=== PATIENT | female | born 1995 | race Two or more races ===

== ENCOUNTER 2018-06-28 15:39 | Inpatient (IN) | payer SELFPAY ==
[~2018-06-28] VITALS: Ht 162.6 cm; Wt 73.6 kg
[2018-06-28 16:35] LABS: Albumin 4.6 g/dL (3.4-5.0); Calcium 9.8 mg/dL (8.5-10.1)
[2018-06-28 16:38] LABS: Bilirubin, Total 0.6 mg/dL (0.2-1.0)
[2018-06-28 16:40] LABS: Basophils # (auto) 0 uL; Basophils % (auto) 0.1 % (0.0-2.0); Eosinophils # (auto) 0 uL; Hematocrit 43.4 % (36.0-46.0); Hemoglobin 14.5 g/dL (12.2-16.2); Lymphocytes % (auto) 8.1 % (10.0-50.0); Mean Corpuscular Hemoglobin 27.2 pg (28.0-32.0); Mean Corpuscular Hgb Conc. 33.4 g/dL (32.0-36.0); Mean Corpuscular Volume 81.4 fL (80.0-100.0); Monocytes # (auto) 0.6 uL; Monocytes % (auto) 4.8 % (0.0-12.0); Neutrophils # (auto) 10.3 uL; Platelet Count (auto) 396 10^3/uL (140-450); Red Blood Cells 5.33 10^6/uL (4.0-5.20); Red Cell Distribution Width 14.2 % (11.8-14.3); White Blood Cell 11.8 10^3/uL (4.4-10.8)
[2018-06-28] MEDS ORDERED: IOHEXOL 350 MG/ML 100ML IJ ONE ×2 (18:07→18:45)
[2018-06-28 18:13] LABS: Urine WBC None Seen /hpf (0 - 5)
[2018-06-28] MEDS ORDERED: ONDANSETRON HCL 4 MG/2 ML VIAL IV ONE (18:15)
[2018-06-28] MEDS ORDERED: MORPHINE SULFATE 4 MG/ML SYR/VIAL IV ONE (18:15)
[2018-06-28] MEDS ORDERED: SODIUM CHLORIDE 0.9% 1,000 ML IV ONE (18:15)
[2018-06-28] MEDS ORDERED: ACETAMINOPHEN 325 MG TAB PO ONE (18:15)
[2018-06-28 18:45] LABS: Urine Bacteria NONE SEEN /hpf (None Seen); Urine Blood 2+ /uL (Negative); Urine Specific Gravity 1.004 (1.001-1.035)
[2018-06-28] MEDS ORDERED: POTASSIUM CHL 20MEQ/100ML 100 ML IV ONE ×2 (19:45→19:57)
[2018-06-28] MEDS ORDERED: TEMAZEPAM 15 MG CAP PO PRN (21:15)
[2018-06-28] MEDS ORDERED: DOCUSATE SOD 100 MG CAP PO PRN (21:15)
[2018-06-28] MEDS ORDERED: ACETAMINOPHEN 325 MG TAB PO PRN (21:15)
[2018-06-28] MEDS ORDERED: MORPHINE SULF INJ 2 MG/ML SYRINGE 1ML IV PRN (21:15)
[2018-06-28] MEDS ORDERED: cefTRIAXone 1GM/50ML D5W 50 ML IV ONE (21:15)
[2018-06-28] MEDS ORDERED: NITROGLYCERIN 0.4 MG SL TAB SL PRN (21:15)
[2018-06-28] MEDS ORDERED: SODIUM CHLORIDE 0.9% 500 ML IV ONE (21:15)
[2018-06-28 21:52] LABS: Alcohol, Urine < 3.0 mg/dL (0-5); Amphetamine Screen, Urine NEGATIVE (NEGATIVE); Barbiturate Scree,Urine NEGATIVE (NEGATIVE); Benzodiazephine Screen, Urine NEGATIVE (NEGATIVE); Cannabinoid Screen, Urine NEGATIVE (NEGATIVE); Cocaine Screen, Urine NEGATIVE (NEGATIVE); Opiate Scree,Urine NEGATIVE (NEGATIVE); Phencyclidine Screen, Urine NEGATIVE (NEGATIVE)
[2018-06-28] MEDS: FAMOTIDINE 20 MG TAB PO SCH (22:11)
[2018-06-28 23:02] VITALS: BP 124/84
[2018-06-28] MEDS ORDERED: LORazepam 0.5 MG TAB PO PRN (23:15)
[2018-06-28 23:48] VITALS: BP 124/84
[2018-06-29] MEDS: HYDROcodone-ACET 5/325MG TAB PO PRN ×4 (00:20→21:26)
[2018-06-29 05:23] VITALS: BP 107/62
[2018-06-29 06:41] LABS: Basophils # (auto) 0 uL; Basophils % (auto) 0.2 % (0.0-2.0); Eosinophils # (auto) 0 uL; Eosinophils % (auto) 0.1 % (0.0-7.0); Hematocrit 38.3 % (36.0-46.0); Hemoglobin 12.7 g/dL (12.2-16.2); Lymphocytes # (auto) 2.5 uL; Mean Corpuscular Hemoglobin 27.3 pg (28.0-32.0); Mean Corpuscular Hgb Conc. 33.2 g/dL (32.0-36.0); Mean Corpuscular Volume 82.3 fL (80.0-100.0); Monocytes # (auto) 1.5 uL; Monocytes % (auto) 10.6 % (0.0-12.0); Neutrophils # (auto) 9.8 uL; Neutrophils % (auto) 71.1 % (37.0-80.0); Platelet Count (auto) 323 10^3/uL (140-450); Red Blood Cells 4.66 10^6/uL (4.0-5.20); Red Cell Distribution Width 14.6 % (11.8-14.3); White Blood Cell 13.8 10^3/uL (4.4-10.8)
[2018-06-29 06:48] LABS: Potassium 3.2 mmol/L (3.5-5.1)
[2018-06-29 06:57] LABS: Albumin 3.6 g/dL (3.4-5.0); BUN/Creatinine Ratio 7.3; Bilirubin, Total 0.4 mg/dL (0.2-1.0); Calcium 8.4 mg/dL (8.5-10.1); Total Protein 7.6 g/dL (6.4-8.2)
[2018-06-29 08:00] VITALS: BP 129/71
[2018-06-29 09:00] VITALS: BP 129/71
[2018-06-29] MEDS ORDERED: ASPirin 81 mg TAB PO SCH (10:00)
[2018-06-29] MEDS: cefTRIAXone 1GM/50ML D5W 50 ML IV SCH (10:29)
[2018-06-29] MEDS: FAMOTIDINE 20 MG TAB PO SCH ×2 (10:29→21:25)
[2018-06-29] MEDS ORDERED: POTASSIUM CHLORIDE 20 MEQ, LIDOCAINE 1% (LOCAL ANESTH.) 2 ML in SODIUM CHL 0.9% 100 ML IV ONE (10:30)
[2018-06-29] MEDS ORDERED: LACTULOSE 20Gm/30ML SOLN PO ONE ×2 (10:30→15:00)
[2018-06-29 13:00] VITALS: BP 119/66
[2018-06-29] MEDS ORDERED: INDOMETHACIN 25 MG CAP PO PRN (16:45)
[2018-06-29 17:00] VITALS: BP 117/73
[2018-06-29] MEDS: ONDANSETRON HCL 4 MG/2 ML VIAL IV PRN (21:25)
[2018-06-29] MEDS: LACTULOSE 20Gm/30ML SOLN PO SCH (21:25)
[2018-06-29 22:00] VITALS: BP 121/75
[2018-06-30 05:02] VITALS: BP 94/69
[2018-06-30 07:58] VITALS: BP 110/67
[2018-06-30 09:00] VITALS: BP 110/67
[2018-06-30] MEDS: LACTULOSE 20Gm/30ML SOLN PO SCH (10:09)
[2018-06-30] MEDS: FAMOTIDINE 20 MG TAB PO SCH ×2 (10:09→22:05)
[2018-06-30] MEDS: cefTRIAXone 1GM/50ML D5W 50 ML IV SCH (10:10)
[2018-06-30 13:00] VITALS: BP 128/80
[2018-06-30 17:00] VITALS: BP 109/75
[2018-06-30 22:00] VITALS: BP 112/61
[2018-07-01 05:00] VITALS: BP 109/52
[2018-07-01 07:43] LABS: Basophils # (auto) 0 uL; Basophils % (auto) 0.3 % (0.0-2.0); Eosinophils # (auto) 0.3 uL; Eosinophils % (auto) 3.8 % (0.0-7.0); Hematocrit 37.9 % (36.0-46.0); Hemoglobin 12.6 g/dL (12.2-16.2); Lymphocytes # (auto) 2.5 uL; Lymphocytes % (auto) 28.5 % (10.0-50.0); Mean Corpuscular Hemoglobin 27.2 pg (28.0-32.0); Mean Corpuscular Hgb Conc. 33.4 g/dL (32.0-36.0); Mean Corpuscular Volume 81.5 fL (80.0-100.0); Monocytes # (auto) 0.7 uL; Monocytes % (auto) 8.3 % (0.0-12.0); Neutrophils # (auto) 5.1 uL; Neutrophils % (auto) 59.1 % (37.0-80.0); Platelet Count (auto) 365 10^3/uL (140-450); Red Blood Cells 4.64 10^6/uL (4.0-5.20); Red Cell Distribution Width 14.3 % (11.8-14.3); White Blood Cell 8.7 10^3/uL (4.4-10.8)
[2018-07-01 07:52] LABS: Albumin 3.6 g/dL (3.4-5.0); BUN/Creatinine Ratio 13.5; Calcium 8.8 mg/dL (8.5-10.1); Potassium 3.5 mmol/L (3.5-5.1)
[2018-07-01 07:55] LABS: Bilirubin, Total 0.2 mg/dL (0.2-1.0); Total Protein 7.8 g/dL (6.4-8.2)
[2018-07-01 09:14] VITALS: BP 113/59
[2018-07-01] MEDS: ONDANSETRON HCL 4 MG/2 ML VIAL IV PRN ×2 (10:13→21:23)
[2018-07-01] MEDS: FAMOTIDINE 20 MG TAB PO SCH ×2 (10:13→21:15)
[2018-07-01] MEDS: cefTRIAXone 1GM/50ML D5W 50 ML IV SCH (10:13)
[2018-07-01 13:03] VITALS: BP 107/63
[2018-07-01 16:54] VITALS: BP 100/63
[2018-07-01] MEDS: HYDROcodone-ACET 5/325MG TAB PO PRN (21:16)
[2018-07-01 22:00] VITALS: BP 106/64
[2018-07-02 05:00] VITALS: BP 104/57
[2018-07-02 08:00] VITALS: BP 101/63
[2018-07-02 09:00] VITALS: BP 101/63
[2018-07-02] MEDS: cefTRIAXone 1GM/50ML D5W 50 ML IV SCH (09:46)
[2018-07-02] MEDS: FAMOTIDINE 20 MG TAB PO SCH (09:46)
[2018-07-02 11:20] VITALS: BP 101/63
== END 2018-07-02 13:20 | disposition home or self-care (01) | DRG 315 ==
LOC: ER 15:44 → TELE-WESTW 21:21
PROVIDERS: ADMIT Nurse Practitioner; ATTEND Internal Medicine
DX: I31.9 Disease of pericardium, unspecified (principal); R65.10 Systemic inflammatory response syndrome (SIRS) of non-infectious origin without acute organ dysfunction; R07.89 Other chest pain; B34.9 Viral infection, unspecified; D72.829 Elevated white blood cell count, unspecified; E66.3 Overweight; E87.6 Hypokalemia; K76.0 Fatty (change of) liver, not elsewhere classified; Z79.899 Other long term (current) drug therapy
CPT/HCPCS: 36415; 71046; 71275; 76830; 76856; 80053; 80307; 81001; 83605; 84484; 85025; 85379; 85652; 86141; 86850; 86900; 86901; 87040; 87804; 93005; 93306; 94761; 96361; 96365; 96375; G0378; J0696; J2001; J2405; J3480